=== PATIENT | female | born 1995 | race Caucasian/White ===

== ENCOUNTER 2019-02-25 17:08 | Emergency (ER) | payer OTHER ==
[~2019-02-25] VITALS: Ht 160 cm; Wt 122.0 kg
[~2019-02-25 17:08] MED LIST: APAP/HYDROCODON1 T13 PO; LAC PO; MAC100 PO; PRENATAL VITAMI1 TA1
[2019-02-25 17:10] VITALS: Ht 160 cm; Wt 122.0 kg
[2019-02-25 18:17] VITALS: BP 156/81
== END 2019-02-25 18:17 | disposition home or self-care (01) ==
LOC: ED 17:08
DX: S62.635A Displaced fracture of distal phalanx of left ring finger, initial encounter for closed fracture (principal); J45.909 Unspecified asthma, uncomplicated; Z91.011 Allergy to milk products; Z91.018 Allergy to other foods; W23.0XXA Caught, crushed, jammed, or pinched between moving objects, initial encounter; Y93.89 Activity, other specified; Y92.89 Other specified places as the place of occurrence of the external cause; Y99.8 Other external cause status
CPT/HCPCS: A4570